=== PATIENT | male | born 1965 | race Caucasian/White ===

== ENCOUNTER → 2016-07-07 | Outpatient (CLI) | payer MEDICAID ==
[2016-07-07 17:53] LABS: ALANINE AMINOTRANSFERASE 13 U/L (0-55); ALBUMIN 3.7 G/DL (3.2-4.5); ANION GAP 10 MMOL/L (5-14); ASPARTATE AMINO TRANSFERASE 11 U/L (5-34); BILIRUBIN,TOTAL 0.5 MG/DL (0.1-1.0); BLOOD UREA NITROGEN 9 MG/DL (7-18); BUN/CREATININE RATIO 11; CALCIUM 8.9 MG/DL (8.5-10.1); CARBON DIOXIDE 22 MMOL/L (21-32); CHLORIDE 105 MMOL/L (98-107); CREATININE SERUM 0.81 MG/DL (0.60-1.30); GFR ESTIMATED > 60; POTASSIUM 4.3 MMOL/L (3.6-5.0); SODIUM 137 MMOL/L (135-145); TOTAL PROTEIN 7.2 G/DL (6.4-8.2)
[2016-07-07 17:58] LABS: GLUCOSE 59 MG/DL (70-105)
== END ==
LOC: HH 17:25
PROVIDERS: ATTEND Family Medicine
DX: E11.9 Type 2 diabetes mellitus without complications (principal)
CPT/HCPCS: 80053; 83036

== ENCOUNTER → 2016-11-30 | Outpatient (CLI) | payer MEDICAID ==
[2016-11-30 14:48] LABS: BASOPHILS # (AUTO) 0.1 10^3/uL (0.0-0.1); BASOPHILS % (AUTO) 1 % (0-10); EOSINOPHILS # (AUTO) 0.6 10^3/uL (0.0-0.3); EOSINOPHILS % (AUTO) 4 % (0-10); LYMPHOCYTES # (AUTO) 2.6 X 10^3 (1.0-4.0); LYMPHOCYTES % (AUTO) 17 % (12-44); MEAN CORPUSCULAR HEMOGLOBIN 30 PG (25-34); MEAN CORPUSCULAR HGB CONC 33 G/DL (32-36); MEAN CORPUSCULAR VOLUME 89 FL (80-99); MEAN PLATELET VOLUME 9.6 FL (7.4-10.4); MONOCYTES # (AUTO) 1.4 X 10^3 (0.0-1.0); MONOCYTES % (AUTO) 9 % (0-12); NEUTROPHILS # (AUTO) 10.4 X 10^3 (1.8-7.8); NEUTROPHILS % (AUTO) 69 % (42-75); PLATELET COUNT 319 10^3/uL (130-400); RED BLOOD COUNT 5.14 10^6/uL (4.35-5.85); RED CELL DISTRIBUTION WIDTH 16.1 % (10.0-14.5); WHITE BLOOD COUNT 15.1 10^3/uL (4.3-11.0)
[2016-11-30 15:11] LABS: ERYTHROCYTE SEDIMENTATION RATE 8 MM/HR (0-30)
[2016-11-30 15:21] LABS: BAND NEUTROPHILS 0 %; BASOPHILS % (MANUAL) 1 %; EOSINOPHILS % (MANUAL) 5 %; LYMPHOCYTES % (MANUAL) 16 %; NEUTROPHILS % (MANUAL) 71 %
[2016-11-30 21:37] LABS: ALANINE AMINOTRANSFERASE 26 U/L (0-55); ANION GAP 14 MMOL/L (5-14); ASPARTATE AMINO TRANSFERASE 21 U/L (5-34); BILIRUBIN,TOTAL 0.6 MG/DL (0.1-1.0); BLOOD UREA NITROGEN 15 MG/DL (7-18); BUN/CREATININE RATIO 19; CALCIUM 9.5 MG/DL (8.5-10.1); CARBON DIOXIDE 23 MMOL/L (21-32); CHLORIDE 103 MMOL/L (98-107); CREATININE SERUM 0.77 MG/DL (0.60-1.30); GFR ESTIMATED > 60; GLUCOSE 81 MG/DL (70-105); POTASSIUM 3.5 MMOL/L (3.6-5.0); SODIUM 140 MMOL/L (135-145); TOTAL PROTEIN 8.2 G/DL (6.4-8.2)
== END ==
LOC: HH 14:42
PROVIDERS: ATTEND Internal Medicine Infectious Disease
DX: N12 Tubulo-interstitial nephritis, not specified as acute or chronic (principal); B96.5 Pseudomonas (aeruginosa) (mallei) (pseudomallei) as the cause of diseases classified elsewhere; B96.1 Klebsiella pneumoniae [K. pneumoniae] as the cause of diseases classified elsewhere
CPT/HCPCS: 80053; 85007; 85027; 85652

== ENCOUNTER → 2016-12-04 | Outpatient (CLI) | payer MEDICAID ==
[2016-12-04 20:12] LABS: BASOPHILS # (AUTO) 0.2 10^3/uL (0.0-0.1); BASOPHILS % (AUTO) 1 % (0-10); EOSINOPHILS # (AUTO) 0.6 10^3/uL (0.0-0.3); EOSINOPHILS % (AUTO) 4 % (0-10); LYMPHOCYTES # (AUTO) 3.5 X 10^3 (1.0-4.0); LYMPHOCYTES % (AUTO) 23 % (12-44); MEAN CORPUSCULAR HEMOGLOBIN 30 PG (25-34); MEAN CORPUSCULAR HGB CONC 33 G/DL (32-36); MEAN CORPUSCULAR VOLUME 89 FL (80-99); MEAN PLATELET VOLUME 10.4 FL (7.4-10.4); MONOCYTES # (AUTO) 1.4 X 10^3 (0.0-1.0); MONOCYTES % (AUTO) 9 % (0-12); NEUTROPHILS # (AUTO) 9.5 X 10^3 (1.8-7.8); NEUTROPHILS % (AUTO) 63 % (42-75); PLATELET COUNT 260 10^3/uL (130-400); RED CELL DISTRIBUTION WIDTH 16.2 % (10.0-14.5); WHITE BLOOD COUNT 15.1 10^3/uL (4.3-11.0)
== END ==
LOC: HH 20:06
PROVIDERS: ATTEND Internal Medicine Infectious Disease
DX: N39.0 Urinary tract infection, site not specified (principal)
CPT/HCPCS: 85025

== ENCOUNTER → 2019-11-17 | Outpatient (CLI) | payer OTHER ==
--- NOTE | 2019-11-17 12:10 | Diagnostic Imaging Report ---
PROCEDURE: CT abdomen and pelvis without contrast. TECHNIQUE: Multiple contiguous axial images were obtained through the abdomen and pelvis without the use of intravenous contrast. Auto Exposure Controls were utilized during the CT exam to meet ALARA standards for radiation dose reduction. INDICATION: Evaluate IVC filter. No prior studies are available for comparison. FINDINGS: Overall quality of study is somewhat compromised due to patient large body habitus. Lung bases are clear. No discrete liver mass is detected. There are multiple stones within the gallbladder. No biliary ductal dilatation is seen. The pancreas and spleen are unremarkable. No adrenal mass is detected. Multiple calcifications in the left kidney are noted, largest 9 mm. Right kidney is unremarkable. No ureteral calculi or hydronephrosis is identified. Aorta and iliac vessels are calcified, but nonaneurysmal. There is an infrarenal IVC filter. Filter position appears to be appropriate. No abnormal migration or perforation is identified. No central retroperitoneal or mesenteric lymphadenopathy is seen. Bowel loops are normal caliber. There is no free fluid or fluid collection. Bladder is unremarkable. Prostate is unremarkable. No pelvic lymphadenopathy is seen. IMPRESSION: 1. Nonobstructing left-sided nephrolithiasis. 2. Cholelithiasis. 3. No acute feature is detected. Dictated by: Dictated on workstation # [id number]
== END ==
LOC: RAD 11:06
DX: Z45.2 Encounter for adjustment and management of vascular access device (principal); J44.9 Chronic obstructive pulmonary disease, unspecified; R22.40 Localized swelling, mass and lump, unspecified lower limb
CPT/HCPCS: 74176